=== PATIENT | female | born 1950 | race Caucasian/White ===

== ENCOUNTER 2020-11-23 12:21 | Outpatient (REF) | payer MEDICARE, SELFPAY ==
--- NOTE | ~2020-11-23 | MM_ITS ---
EXAMINATION: MM SCREENING DIGITAL BREAST TOMOSYNTHESIS, BILATERAL CLINICAL INFORMATION: Screening. Asymptomatic. The lifetime risk of breast cancer based on the Tyrer-Cuzick Model is 8%. COMPARISON: Mammography: 09/07/2019, 12/03/2017, 6 11/13/2016 TECHNIQUE: Digital breast tomosynthesis is performed in both the craniocaudal and mediolateral oblique views along with computer-aided detection (CAD). Synthesized 2D images are generated from the tomosynthesis. FINDINGS: There are scattered areas of fibroglandular density (ACR BI-RADS breast composition Category b). There are no significant masses, abnormal calcifications, or other abnormalities. Parenchymal pattern is similar to prior studies. No developing density. The axilla and skin contours are unremarkable. No significant changes. MM/MM tomosynthesis screening BI IMPRESSION: No mammographic evidence of malignancy. ASSESSMENT: BI-RADS 1: Negative RECOMMENDATION: Routine annual mammography screening. This patient's information was entered into a reminder system with a target due date for their next mammogram.
== END 2020-11-23 12:22 | disposition home or self-care (01) ==
LOC: HO.MAMMO 12:21
PROVIDERS: PCP Internal Medicine; Visit Provider Internal Medicine
DX: Z12.31 Encounter for screening mammogram for malignant neoplasm of breast (principal)
CPT/HCPCS: 77063; 77067

== ENCOUNTER 2021-11-26 12:22 | Outpatient (REF) | payer MEDICARE, SELFPAY ==
--- NOTE | ~2021-11-26 | MM_ITS ---
EXAMINATION: MM SCREENING DIGITAL BREAST TOMOSYNTHESIS, BILATERAL CLINICAL INFORMATION: Screening. Asymptomatic. The lifetime risk of breast cancer based on the Tyrer-Cuzick Model is 7%. COMPARISON: Mammography: 11/23/2020, 09/07/2019, 12/03/2017 TECHNIQUE: Digital breast tomosynthesis is performed in both the craniocaudal and mediolateral oblique views along with computer-aided detection (CAD). Synthesized 2D images are generated from the tomosynthesis. Additional right CC view is provided. FINDINGS: There are scattered areas of fibroglandular density (ACR BI-RADS breast composition Category b). There are no significant masses, abnormal calcifications, or other abnormalities. No developing density. No architectural abnormality. The axilla and skin contours are unremarkable. MM/MM tomosynthesis screening BI IMPRESSION: No mammographic evidence of malignancy. ASSESSMENT: BI-RADS 1: Negative RECOMMENDATION: Routine annual mammography screening. This patient's information was entered into a reminder system with a target due date for their next mammogram.
== END 2021-11-26 12:23 | disposition home or self-care (01) ==
LOC: HO.MAMMO 12:22
PROVIDERS: PCP Internal Medicine; Visit Provider Internal Medicine
DX: Z12.31 Encounter for screening mammogram for malignant neoplasm of breast (principal)
CPT/HCPCS: 77063; 77067

== ENCOUNTER → 2022-12-16 10:30 | Outpatient (BNV) | payer MEDICARE, SELFPAY | PROVIDERS: PCP Internal Medicine; Visit Provider Radiology Diagnostic Radiology | DX: Z12.31 Encounter for screening mammogram for malignant neoplasm of breast (principal) | CPT/HCPCS: 77063; 77067 ==

== ENCOUNTER 2022-12-16 10:34 | Outpatient (REF) | payer MEDICARE, SELFPAY | END 2022-12-16 10:35 | disposition home or self-care (01) | LOC: HO.MAMMO 10:34 | PROVIDERS: PCP Internal Medicine; Visit Provider Internal Medicine | DX: Z12.31 Encounter for screening mammogram for malignant neoplasm of breast (principal) | CPT/HCPCS: 77063; 77067 ==

== ENCOUNTER 2023-12-22 10:26 | Outpatient (REF) | payer MEDICARE, SELFPAY ==
--- NOTE | ~2023-12-22 | MM_ITS ---
EXAMINATION: MM SCREENING DIGITAL BREAST TOMOSYNTHESIS, BILATERAL CLINICAL INFORMATION: Screening. Asymptomatic. COMPARISON: Mammography: Comparison is made with available priors TECHNIQUE: Digital breast mammography with tomosynthesis is performed in both the craniocaudal and mediolateral oblique views along with computer-aided detection (CAD). FINDINGS: There are scattered areas of fibroglandular density (ACR BI-RADS breast composition Category b). There are no significant masses, abnormal calcifications, or other abnormalities. MM/MM tomosynthesis screening BI IMPRESSION: No mammographic evidence of malignancy. ASSESSMENT: BI-RADS BI-RADS 1 - Negative RECOMMENDATION: Routine annual mammography screening. 1 year F/U This examination should not preclude the clinical evaluation of a suspicious palpable abnormality. This patient's information was entered into a reminder system with a target due date for their next mammogram. Electronically signed by: Carmella Bueno DO 12/30/2023 12:28 PM GODWIN
== END 2023-12-22 10:27 | disposition home or self-care (01) ==
LOC: HO.MAMMO 10:26
PROVIDERS: PCP Internal Medicine; Visit Provider Internal Medicine
DX: Z12.31 Encounter for screening mammogram for malignant neoplasm of breast (principal)
CPT/HCPCS: 77063; 77067

== ENCOUNTER → 2023-12-22 10:30 | Outpatient (BNV) | payer MEDICARE, SELFPAY | PROVIDERS: PCP Internal Medicine; Visit Provider Internal Medicine | DX: Z12.31 Encounter for screening mammogram for malignant neoplasm of breast (principal) | CPT/HCPCS: 77063; 77067 ==

== ENCOUNTER 2025-01-23 12:54 | Outpatient (REF) | payer MEDICARE, SELFPAY ==
--- OUTSIDE RECORDS SUMMARY | 2025-01-23 18:42 | XMS_ITS | Clinical Summary ---
Author Organization [facility] Address [address] [place] [id number] Phone Care Team Providers Care Sales Service Rep Name Role Phone Adrien Joseph SCIENTIFIC MANAGER Unavailable Julian Carmona MD Primary Care Provider [phone] Allergies Active Allergy Reactions Criticality Noted Date Comments Sulfamethoxazole-Trimethoprim GI Upset 2017 Nitrofurantoin Monohyd/M-Cryst Rash Low 12/21/2024 Rash on legs while taking Macrobid. Medications ibuprofen (ADVIL,MOTRIN) 200 MG tablet Active melatonin 5 mg Tab Take by mouth nightly at bedtime as needed. Active calcium carbonate-vitami n D3 500 mg-400 units per tablet Take 1 tablet by mouth daily. 1 Active cranberry extract 650 mg Cap 3 Active RETIN-A 0.025 % cream Apply topically nightly at bedtime. 45 g 5 4 Active butalbital-aceta minophen-caffein e (FIORICET, ESGIC) 50-325-40 mg per tabletIndication s:Migraine without aura and without status migrainosus, not intractable Take 1 tablet by mouth every 6 (six) hours as needed for pain (specific location in comments). 30 tablet 5 Active celecoxib (CELEBREX) 200 MG capsuleIndicatio ns:Cervicalgia Take 1 capsule (200 mg total) by mouth daily. 30 capsule 2 5 Active Active Problems Problem Noted Date Diagnosed Date Abnormal thyroid function test 12/21/2024 Assessment & Plan (12/21/2024 1:33 PM EST): Asymptomatic. If TSH is significantly higher, would consider treatment with levothyroxine Hypercholesterolemia 12/21/2024 Assessment & Plan (12/21/2024 1:33 PM EST): No evidence of cardiovascular disease. Continue low-fat diet Cervicalgia 09/19/2024 Assessment & Plan (12/21/2024 1:33 PM EST): She started working with a new physical therapist and she like to see if this new therapist is not able to help her more. I also would suggest changing from ibuprofen to Celebrex to see if this gives her better duration of pain relief and is less likely to upset her stomach and taking nightly ibuprofen. If she is not seeing gradual improvement over the next month or 2, she will contact our office and I would check an x-ray of her C-spine Upper back pain 09/19/2024 Recurrent UTI (urinary tract infection) 02/28/19 Assessment & Plan (02/28/2022 2:20 PM EST): She has had a few uncomplicated urinary tract infections this year. Her urine today shows nothing significant. She still has a trace amount of blood but that is probably the residual from the cystitis. I encouraged her to drink plenty of fluids and call if her symptoms do not continue to gradually improve. If she continues to get frequent UTIs, she may need further evaluation. Anxiety 12/07/2020 Assessment & Plan (12/09/2021 1:19 PM EDT): Main symptom is intermittent insomnia, rec relation techniques. Assessment & Plan (12/07/2020 2:59 PM EDT): She is doing well, she can continue using lorazepam as long as she only needs it very infrequently. Migraine without aura and wi thout status migrainosus, not intractable 03/03/2017 Overview (12/07/2020): RENDON since childhood. Better with ibuprofen or Fioricet Assessment & Plan (12/10/2022 1:29 PM EDT): Doing well with current medication. Continue the same Assessment & Plan (12/09/2021 1:28 PM EDT): Headaches are stable, refill sent for Fioricet. She has been tolerating it well. Assessment & Plan (12/07/2020 2:59 PM EDT): Doing well with current medication. Continue the same. Epidermoid cyst of skin 03/03/2017 Resolved Problems Problem Noted Date Diagnosed Date Resolved Date Trapezius strain, left, initial encounter 12/16/2023 12/21/2024 Assessment & Plan (12/16/2023 1:27 PM EST): Strengthening, range of motion and stretching exercises were reviewed. If these are not helpful she can call for physical therapy referral. Dysuria 10/20/2023 12/16/2023 Assessment & Plan (10/20/2023 4:47 PM EDT): She was unable to provide a urine specimen today. UA reflex culture ordered. She tolerated nitrofurantoin previously and cultures back to 2019 (reviewed) have not demonstrated nitrofurantoin resistance. Results are not available by end of the day. I will reach out tomorrow with results and plan. Push fluids. Call with worsening pain, fever or chills, signs of ascending infection. Acute cystitis without hematuria 02/17/2023 12/16/2023 Assessment & Plan (02/17/2023 9:55 AM EST): Drink plenty of fluids. Symptoms should improve over the next couple days and have resolved by the end of the course of treatment. If she is not seeing improvement as expected, contact our office. Acute bronchitis due to Streptococcus 12/30/2022 12/16/2023 Assessment & Plan (12/30/2022 2:18 PM EST): Symptoms are consistent with an acute bronchitis, possibly bacterial or due to an atypical organism such as mycoplasma. I will treat her empirically with doxycycline. If symptoms do not improve and resolve with treatment, to contact our office and I will order a chest x-ray. Encounters Date Type Department Care Team Description 12/21/2024 1:00 PM EST Office Visit [address] [place] [address] Julian Carmona MD Encounter for Medicare annual wellness exam (Primary Dx); Cervicalgia; Abnormal thyroid function test; Hypercholesterolemia 11/30/2024 3:30 PM EDT Office Visit [address] [place] [address] July Tejada CNP Dysuria (Primary Dx) 11/30/[address] [place] [address] Julian Carmona MD Triage (Yellow+UTI symptoms) from Last 3 Months Immunizations Immunization Administration Dates Next Due COVID-19 (Pre-12/01) Moderna Vaccine, mRNA, PF 12/26/2020 COVID-19 (Pre-12/01) Pfizer Vaccine, mRNA, PF 04/28/2020,04/07/2020 Hepatitis B Adult 02/07/1985 INFLUENZA, SPLIT VIRUS, TRIV ALENT W/ PRESERVATIVE IM 12/07/2015,12/12/2013 Influenza High-Dose Quadriva lent Preservative Free IM 12/05/2019 Influenza High-Dose Trivalen t Preservative Free IM 11/11/2024,11/09/2023,11/15/2021 Influenza Quadrivalent Prese rvative Free IM 11/14/2022,11/08/2020,11/24/2018,11/25 Influenza Quadrivalent w/ Pr eservative IM 12/05/2016 Pneumococcal conjugate PCV13 04/01/2018 Pneumococcal polysaccharide PPSV23 12/05/2019 Td (adult) 5 Lf Tetanus Toxo id, PF, Adsorbed 02/11/2009 Tdap 03/05/2017,03/05/2017 Zoster live 02/21/2014 Zoster recombinant 08/27/2023,04/30/2023 Family History Medical History Relation Comments Diabetes type II Brother No Known Problems Daughter 1 No Known Problems Daughter 2 Cancer Father squamous cell ca 73 No Known Problems Granddaughter No Known Problems Grandson CV disease Maternal Grandmother Diabetes mellitus Maternal Grandmother Cancer Mother pancreatic age 63 CV disease Paternal Grandmother Diabetes mellitus Paternal Grandmother Relation Status Comments Brother Alive Daughter 1 Alive Valentine Daughter 2 Alive Valentine Father Granddaughter Alive Grandson Alive Maternal Grandmother Mother Paternal Grandmother Social History Tobacco Use Types Packs/Day Years Used Date Smoking Tobacco: Never Smokeless Tobacco: Never Tobacco Cessation:Counseling Given: Not Answered Alcohol Use Standard Drinks/Week Comments Yes 0 (1 standard drink = 0.6 oz pur e alcohol) Education Answer Date Recorded Are you interested in more education? Not on narda e 06/06/2022 Are you concerned about learning? Not on file 06/06/2022 No 06/06/2022 No 06/06/2022 Digital Access Answer Date Recorded No 07/07/2022 No 07/07/2022 Reliable internet access at home? Not on file 07/07/2022 Device with a working camera? Not on file Intimate Partner Violence Answer Date R ecorded Denied Basic Needs Not on file 12/21/2024 In the past 12 months have y ou been in a relationship with a person who hurts, threatens, or tries to control you? No 12/21/2024 Worried food would run out Not on file 12/21 In the past 12 months have y ou been in a relationship with a person who hurts, threatens, or tries to control you? 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 Not on file Not on file Last Filed Vital Signs Vital Sign Reading Time Taken Comments Blood Pressure 110/52 12/21/2024 12:57 PM EST Pulse 73 12/21/2024 12:57 PM EST Temperature 36.1 C (97 F) 12/21/2024 12:57 PM EST Respiratory Rate 16 09/06/2021 11:52 AM EDT Oxygen Saturation 98% 12/21/2024 12:57 PM EST Inhaled Oxygen Concentration - - Weight 58.2 kg (128 lb 3.2 oz) 12/21/2024 12:57 PM EST Height 159.2 cm (5' 2.68 ) 12/21/2024 12:[address] Body Mass Index 22.94 12/21/2024 12:57 PM EST Plan of Treatment Upcoming Encounters Date Type Department Care Team (Late st Contact Info) Description 12/27/2025 1:00 PM EST Office Visit [facility] Medicine [address] [place] [address] [place] [address] Julian Carmona MD [address] [facility], [address] [place] [address] Health Maintenance Due Date Last Done Comments COLONOSCOPY 01/03/1996 FIT TEST 01/03/1996 FOBT 01/03/1996 SIGMOIDOSCOPY 01/03/1996 VIRTUAL COLONOSCOPY 01/03/1996 COVID-19 VACCINE ( season) 2024 11/14/2023, 12/25/2022, 12/05/2021, Additional history exists LIPID PANEL 11/06/2025 11/06/2020, 12/10, 03/14/2017, Additional history exists DEPRESSION SCREENING 12/21/2025 12/21/2024 MAMMOGRAM 12/21/2025 12/22/2023, 08/2022, 11/27/2021, Additional history exists RSV VACCINE (1 - 1-dose 75+ series) 2026 Adult Td,Tdap Booster 03/05/2027 03/05/2017 , 03/05/2017, 02/11/2009 COLOGUARD 09/13/2027 09/12/2024 COLORECTAL CANCER SCREENING 09/13/2027 OSTEOPOROSIS SCREENING INITIAL (ONE-TIME) 02/10/2039 Postponed from 01/03/2016 (Not Clinically Appropriate) PNEUMOCOCCAL VACCINES (50+ years) Completed 12/05/2019, 04/01/2018 HEPATITIS C SCREENING Completed 12/09/2021 ZOSTER VACCINES Completed 08/27/2023, 04/10, 02/21/2014 INFLUENZA VACCINE Completed 11/11/2024, , 11/14/2022, Additional history exists SMOKING STATUS SCREENING (Once After 26 Yrs) Completed 12/21/2024 HEPATITIS A VACCINES Aged Out No long er eligible based on patient's age to complete this topic HIB VACCINES Aged Out No longer eligi ble based on patient's age to complete this topic MENINGOCOCCAL VACCINES (ACWY) Aged Out No longer eligible based on patient's age to complete this topic MENINGOCOCCAL VACCINES (B) Aged Out N o longer eligible based on patient's age to complete this topic Medical Devices Not on file Procedures Procedure Name Priority Date/Time Associated Diagnosis Comments TSH WITH REFLEX Routine 12/21/2024 1:36 PM EST Abnormal thyroid function test POCT URINE DIPSTICK Routine 11/30/2024 3 :33 PM EDT HM MAMMOGRAPHY Routine 12/22/2023 2:16 PM EST HEPATITIS C ANTIBODY, QUALITATIVE Routine 12/09/2021 1:44 PM EDT Need for hepatitis C screening test LIPID PANEL Routine 11/06/2020 9:13 AM EDT Mixed hyperlipidemia from Last 3 Months or Most Recently Relevant to Health Maintenance Results * Thyroid Stimulating Hormone (TSH), with Reflex (12/21/2024 1:36 PM EST) TSH 3.66 0.40 - 5.90 uIU/mL 12/21/2024 7:29 PM EST [facility] Blood (Blood) Venipuncture / Unknown 12/21/2024 1:36 PM EST 12/21/2024 1:36 PM EST us Julian Carmona MD LAB BLOOD BKR ORDERABLES F inal Result [facility] [address] [place] [address] * (ABNORMAL) POCT Urine Dipstick (Automated) (11/30/2024 3:33 PM EDT) COLOR Yellow [facility] TURBIDITY Clear [facility] GLUCOSE, POCT Negative Negative [facility] KETONE, POCT Negative Negative [facility] OCCULT BLOOD, POCT 2+(A) Negative [facility] SPECIFIC GRAVITY, POCT 1.010 1.001 - 1.030 [facility] ALBUMIN, POCT Negative Negative [facility] Bili Negative Negative [facility] Urobilinogen 0.2 <1.0 [facility] NITRITE, POCT Positive(A) Negative [facility] PH, POCT 5.5 5.0 - 8.0 [facility] WBC SCREEN, POCT 1+(A) Negative [facility] 11/30/2024 3:33 PM EDT 11/30/2024 3:56 PM EDT July Tejada [facility] LAB POCT ENTER/EDIT ORDER GRAEME Final Result Performing Organization Address City/[facility]/ZIP Co de Phone Number [address] [address], [facility] [phone] * HM MAMMOGRAPHY FOR RESULT ENTRY ONLY (12/22/2023 2:16 PM EST) Julian Carmona MD HEALTH MAINTENANCE Edited Result - Final * Hepatitis C antibody, qualitative (12/09/2021 1:44 PM EDT) HCV NON-REACTIV E NON-REACTI VE [facility] Blood 12/09/2021 1:44 PM EDT 12/09/2021 2:11 PM EDT us Julian Carmona MD LAB BLOOD BKR ORDERABLES F inal Result [facility] [address] [place] [address] * (ABNORMAL) Lipid panel (11/06/2020 9:13 AM EDT) HDL 86 mg/dL [facility] Comment: Interpretation <40 mg/dL: Low HDL cholesterol (major risk factor for CHD) Greater than or equal to 60 mg/dL: High HDL cholesterol ( negative risk factor for CHD) HDL - cholesterol is affected by a number of factors, e.g. smoking, excerise, hormones, sex and age. CHOLESTEROL 277(H) 0 - 240 mg/dL [facility] TRIGLYCERIDES 69 30 - 160 mg/dL [facility] LDL 177(H) 50 - 129 mg/dL [facility] Comment: LDL levels in terms of risk for coronary heart disease: <100 mg/dL: Optimal 100-129 mg/dL: Near or above optimal 130-159 mg/dL: Borderline high 160-189 mg/dL: High >190 mg/dL: Very High CARDIAC RISK RATIO 3.2(L) 3.3 - 4.4 C [facility] Blood 11/06/2020 9:13 AM EDT 11/06/2020 9:15 AM EDT us Eli Siddiqui DO LAB BLOOD BKR ORDERABLES F inal Result [facility] [address] [place] [address] from Last 3 Months or Most Recently Relevant to Health Maintenance Insurance [facility] MEDICARE PPO BLUE REPLACEMENT MEDICARE PPO BLUE REPLACEMENT MEDICARE PPO BLUE REPLACEMENT MEDICARE PPO BLUE REPLACEMENT MEDICARE PPO BLUE REPLACEMENT MEDICARE PPO BLUE REPLACEMENT MEDICARE PPO BLUE REPLACEMENT MEDICARE PPO BLUE REPLACEMENT MEDICARE PPO BLUE REPLACEMENT Care Teams Sales Service Rep Relationship Specialty Start Date End Date Julian Carmona MD [address] [place] [address], [address] [place] [address] [email or web address] PCP - General Internal Medicine 06/15/20 Adrien Joseph CNP [address] [place] [address], [address] [place] [address] Historical LMR Provider 11/29/16 Additional Source Comments The information contained in this document represents components of the legal health record. It is not the complete legal health record.[facility]
== END 2025-01-23 12:55 | disposition home or self-care (01) ==
LOC: HO.MAMMO 12:54
PROVIDERS: PCP Internal Medicine; Visit Provider Internal Medicine
DX: Z12.31 Encounter for screening mammogram for malignant neoplasm of breast (principal)
CPT/HCPCS: 77063; 77067

== ENCOUNTER → 2025-01-23 13:15 | Outpatient (BNV) | payer MEDICARE, SELFPAY | PROVIDERS: PCP Internal Medicine; Visit Provider Internal Medicine | DX: Z12.31 Encounter for screening mammogram for malignant neoplasm of breast (principal) | CPT/HCPCS: 77063; 77067 ==